=== PATIENT | male | born 1965 | race Caucasian/White ===

== ENCOUNTER 2022-09-23 19:31 | Emergency (ER) | payer OTHER ==
[2022-09-23] MEDS ORDERED: Acetaminophen 500 MG TAB ONE (19:57)
== END 2022-09-23 20:10 | disposition home or self-care (01) ==
LOC: NAV ERS 19:31
DX: S01.81XA Laceration without foreign body of other part of head, initial encounter (principal); Z86.718 Personal history of other venous thrombosis and embolism; Z79.01 Long term (current) use of anticoagulants; W22.8XXA Striking against or struck by other objects, initial encounter
CPT/HCPCS: 12011

== ENCOUNTER 2023-05-18 11:16 | Emergency (ER) | payer OTHER ==
[2023-05-18] MEDS ORDERED: Lidocaine 1% (PF) 30 ML VIAL ONE (12:24)
== END 2023-05-18 13:33 ==
LOC: NAV ERS 11:16
DX: S06.9X9A Unspecified intracranial injury with loss of consciousness of unspecified duration, initial encounter (principal); S01.412A Laceration without foreign body of left cheek and temporomandibular area, initial encounter; Z79.01 Long term (current) use of anticoagulants; Y04.8XXA Assault by other bodily force, initial encounter
CPT/HCPCS: 12011; 70450; 70486; J2001

== ENCOUNTER 2023-05-21 09:02 | Emergency (ER) | payer OTHER ==
[2023-05-21 10:03] LABS: INR-International Normal Ratio 2.4; Prothrombin Time 27.4 sec (12.0-14.7)
[2023-05-21 10:04] LABS: PTT 47.7 sec (22.9-36.1)
== END 2023-05-21 10:52 ==
LOC: NAV ERS 09:02
DX: S00.83XA Contusion of other part of head, initial encounter (principal); S13.8XXA Sprain of joints and ligaments of other parts of neck, initial encounter; E78.00 Pure hypercholesterolemia, unspecified; Z79.01 Long term (current) use of anticoagulants; Y04.8XXA Assault by other bodily force, initial encounter
CPT/HCPCS: 85610; 85730; 99284

== ENCOUNTER 2023-06-14 20:01 | Emergency (ER) | payer OTHER ==
[2023-06-14 20:36] LABS: Bilirubin Negative (Negative); Blood, Urine Large (Negative); Glucose, Urine (Dipstick) Negative (Negative); Ketone, Urine Negative (Negative); Leukocyte Negative (Negative); Nitrite Negative (Negative); Protein, Urine (Dipstick) 100 mg/dL (Neg-Trace); Specific Gravity, Urine 1.015 (1.005-1.030); Urobilinogen 0.2 mg/dL (Less than 2)
[2023-06-14 20:37] LABS: CAUTI Indications for Culture Dysuria,urgency,freq; Clarity Cloudy (Clear); RBC/HPF Greater than 50 HPF (0-3); Squamous Epithelial 0-3 HPF (0-3); WBC/HPF 0-3 HPF (0-3)
[2023-06-14 20:39] LABS: #Basophils 0.1 thou/uL (0.0-0.2); #Eosinphils 0.2 thou/uL (0.0-0.7); #Monocytes 0.6 thou/uL (0.11-0.59); #Neutrophils 5.3 thou/uL (1.40-6.50); %Basophils 1.5 % (0.0-1.0); %Eosinophils 2.8 % (0.0-10.0); %Lymphocytes 24.1 % (21.0-51.0); %Monocytes 6.9 % (0.0-10.0); %Neutrophils 64.7 % (42.0-75.0); Hematocrit 28.7 % (42.0-52.0); Hemoglobin 9.6 g/dL (14.0-18.0); Mean Corpuscular HGB CONC 33.4 g/dL (32.0-36.0); Mean Corpuscular Hemoglobin 28.5 pg (27.0-31.0); Mean Corpuscular Volume 85.5 fl (78.0-98.0); Mean Platelet Volume 7.9 fL (7.4-10.4); Platelet Count 203 10x3/uL (130-400); RBC Distribution Width 13.5 % (11.5-14.5); Red Blood Cell (RBC) Count 3.36 mill/uL (4.70-6.10); White Blood Cell (WBC) Count 8.2 10x3/uL (4.8-10.8)
[2023-06-14 20:39] LABS: Urine Culture Reflex No No
[2023-06-14 20:46] LABS: INR-International Normal Ratio 1.4; PTT 28.5 sec (22.9-36.1); Prothrombin Time 17.6 sec (12.0-14.7)
[2023-06-14 20:49] LABS: ALT (SGPT) 13 U/L (8-55); AST (SGOT) 21 U/L (5-34); Albumin 3.9 g/dL (3.5-5.0); Alkaline Phosphatase 85 U/L (40-110); Anion Gap 19 mmol/L (10-20); BUN (Urea Nitrogen) 37 mg/dL (8.4-25.7); Bilirubin, Total 0.3 mg/dL (0.2-1.2); Calc. Creatinine Clearance 0 mL/min (70-130); Carbon Dioxide 18 mmol/L (22-29); Chloride 106 mmol/L (98-107); Estimated GFR 28; Globulin 4.6 g/dL (2.4-3.5); Glucose 100 mg/dL (70-105); Potassium 4.7 mmol/L (3.5-5.1); Protein, Total 8.5 g/dL (6.0-8.3); Sodium 138 mmol/L (136-145)
== END 2023-06-14 21:40 ==
LOC: NAV ERS 20:01
DX: R31.9 Hematuria, unspecified (principal); N28.9 Disorder of kidney and ureter, unspecified; E78.00 Pure hypercholesterolemia, unspecified; F17.210 Nicotine dependence, cigarettes, uncomplicated
CPT/HCPCS: 80053; 81001; 85025; 85610; 85730; 99283

== ENCOUNTER 2023-12-06 20:40 | Emergency (ER) | payer OTHER ==
[2023-12-06] MEDS ORDERED: Bacitracin 1 PK ONE (21:55)
[2023-12-06] MEDS ORDERED: Cephalexin 250 MG CAP ONE (22:08)
== END 2023-12-06 22:15 ==
LOC: NAV ERS 20:40
DX: S56.424A Laceration of extensor muscle, fascia and tendon of left middle finger at forearm level, initial encounter (principal); S61.213A Laceration without foreign body of left middle finger without damage to nail, initial encounter; F17.210 Nicotine dependence, cigarettes, uncomplicated; W26.8XXA Contact with other sharp object(s), not elsewhere classified, initial encounter
CPT/HCPCS: 12002